=== PATIENT | male | born 1990 ===

== ENCOUNTER 2017-07-03 12:46 | Emergency (ER) | payer OTHER ==
--- NOTE | 2017-07-03 13:15 | C.PDOC ---
History Of Present Illness 27 year old male with no major medical problems presents to the emergency department following an allergic reaction he began experiencing after returning from the gym this morning. Patient reports a normal daily routine with coffee and an apple, states that he was doing barbell exercises at the gym and eventually noticed itchiness and hives all throughout his body. Patient states that he is breathing fine, and he denies any changes in products or clothing. Time Seen by Provider: 07/03/17 13:01 Chief Complaint (Nursing): Allergic Reaction History Per: Patient History/Exam Limitations: no limitations Onset/Duration Of Symptoms: Hrs Current Symptoms Are (Timing): Still Present Possible Cause: Unknown Associated Symptoms: Skin Rash, Itching. denies: Dyspnea Past Medical History Reviewed: Historical Data, Nursing Documentation, Vital Signs Vital Signs: Last Vital Signs Temp 97.9 F 07/03/17 12:48 Pulse 91 H 07/03/17 12:48 Resp 18 07/03/17 12:48 BP 131/82 07/03/17 12:48 Pulse Ox 98 07/03/17 13:19 - Medical History PMH: No Chronic Diseases Surgical History: No Surg Hx Family History: States: No Known Family Hx - Social History Hx Alcohol Use: Yes Hx Substance Use: Yes (LAST USED LAST NIGHT) - Immunization History Hx Tetanus Toxoid Vaccination: No Hx Influenza Vaccination: No Hx Pneumococcal Vaccination: No Review Of Systems Except As Marked, All Systems Reviewed And Found Negative. Respiratory: Negative for: Shortness of Breath, Other (dyspnea) Skin: Positive for: Other (hives + itchiness) Physical Exam - Physical Exam Appears: Non-toxic, No Acute Distress Skin: No Normal Color (diffuse erythema all over body), Other (diffuse hives all over body. ) Oral Mucosa: Moist, No Other (swelling) Tongue: Normal Appearing, No Swelling Lips: Normal Appearing, No Swelling Cardiovascular: Rhythm Regular Respiratory: Normal Breath Sounds ED Course And Treatment O2 Sat by Pulse Oximetry: 98 (RA) Pulse Ox Interpretation: Normal Medical Decision Making Medical Decision Making: Plan: Benadryl 50mg PO Pepcid 20mg PO Prednisone 60mg PO Disposition Counseled Patient/Family Regarding: Diagnosis, Need For Followup, Rx Given - Disposition Disposition: HOME/ ROUTINE Disposition Time: 13:58 Condition: STABLE Prescriptions: DiphenhydrAMINE [Benadryl] 50 mg PO TID #10 cap Famotidine [Pepcid] 20 mg PO TID #10 tab Prednisone [Deltasone] 60 mg PO DAILY #10 tablet Instructions: Hives Forms: [facility] ([place]), General Discharge Instructions - POA Present On Arrival: None - Clinical Impression Clinical Impression: Allergic contact dermatitis - Scribe Statement The provider has reviewed the documentation as recorded by the Scribe (Migue Moyer) Provider Attestation: All medical record entries made by the Scribe were at my direction and personally dictated by me. I have reviewed the chart and agree that the record accurately reflects my personal performance of the history, physical exam, medical decision making, and the department course for this patient. I have also personally directed, reviewed, and agree with the discharge instructions and disposition.
[2017-07-03 14:00] VITALS: BP 120/76; PULSE 74; RESP 16; TEMP 98
[2017-07-03 14:01] VITALS: O2SAT 98
== END 2017-07-03 14:32 | disposition home or self-care (01) ==
LOC: C.ER 12:46
DX: L23.9 Allergic contact dermatitis, unspecified cause (principal)